=== PATIENT | male | born 1970 | race Caucasian/White ===

== ENCOUNTER 2019-11-27 04:35 | Emergency (ER) | payer OTHER ==
--- NOTE | 2019-11-27 04:50 | PDOC ---
Medical Decision Making - Medical Decision Making 11/27/19 04:50 Patient seen by the advanced practice provider under my supervision. Ancillary testing reviewed as necessary. I agree with plan as outlined by the advanced practice provider. Discharge - Discharge Information Problems reviewed: Yes Clinical Impression/Diagnosis: Urticaria Condition: Fair - Follow up/Referral - Patient Discharge Instructions - Post Discharge Activity
[2019-11-27 05:00] VITALS: BP 130/81; PULSE 89; TEMP 97.9; BMI 28.6
[2019-11-27] MEDS ORDERED: diphenhydrAMINE HCL 25 MG CAPSULE (FP) PO ONE ×2 (05:04→05:14)
[2019-11-27] MEDS ORDERED: predniSONE 20 MG TABLET (UD) PO ONE (05:04)
[2019-11-27] MEDS ORDERED: FAMOTIDINE 20 MG TABLET PO ONE (05:04)
--- NOTE | 2019-11-27 05:11 | PDOC ---
History of Present Illness - General Chief Complaint: Rash Stated Complaint: ALLERGIC REACTION Time Seen by Provider: 11/27/19 04:48 History Source: Patient - History of Present Illness Initial Comments: 11/27/19 05:05 49-year-old male complaining of itchy rash all over body for the last 2 days. Patient reports some slight symptom relief with Benadryl. Patient reports that he took 25 mg of Benadryl at 3:30 AM. Patient reports some itchiness to tongue. No tongue swelling, lip swelling. Uvula midline. Pharynx clear Past medical history of MS Past History - Medical History Allergies/Adverse Reactions: Allergies Allergy/AdvReac Type Severity Reaction Status Date / Time No Known Allergies Allergy Verified 11/27/19 04:56 Home Medications: Ambulatory Orders Diphenhydramine HCl [Benadryl -] 25 mg PO Q8H PRN #21 capsule 11/27/19 Famotidine [Pepcid -] 20 mg PO DAILY #14 tablet 11/27/19 Methylprednisolone [Medrol Dose [place]] 4 mg PO ASDIR #21 tablet 11/27/19 Teriflunomide [Aubagio] 14 mg PO DAILY 11/27/19 Other medical history: multiple sclerosis - Psycho-Social/Smoking History Smoking History: Never smoked Information on smoking cessation initiated: No - Substance Abuse Hx (Audit-C & DAST Scrn) How often the patient has a drink containing alcohol: Never Score: In Men: 4 or > Positive; In Women: 3 or > Positive: 0 Screen Result (Pos requires Nsg. Audit-10AR): Negative In the last yr the pt used illegal drug/Rx for NonMed reason: No Score: Yes response is considered Positive: 0 Screen Result (Positive result requires Nsg. DAST-10): Negative Review of Systems - Review of Systems Able to Perform ROS?: Yes Is the patient limited [place] proficient: No Constitutional: No: Symptoms Reported, See HPI, Chills, Diaphoresis, Fever, Loss of Appetite, Malaise, Night Sweats, Weakness, Weight Stable, Unintentional Wgt. Loss, Unexplained wgt Loss, Other Integumentary: Yes: Pruritus, Rash *Physical Exam - Vital Signs Last Vital Signs Temp Pulse Resp BP Pulse Ox 97.9 F 89 17 130/81 97 11/27/19 04:53 11/27/19 04:53 11/27/19 04:53 11/27/19 04:53 11/27/19 04:53 - Physical Exam General Appearance: Yes: Appropriately Dressed Respiratory/Chest: positive: Lungs Clear, Normal Breath Sounds Integumentary: positive: Hives, Rash, Other (scalp, trunk , groin and hands) Neurologic: positive: Fully Oriented, Alert ED Progress Note - Progress Note Progress Note: allergic reaction P: medrol dose pack benadryl pepcid Discharge - Discharge Information Problems reviewed: Yes Clinical Impression/Diagnosis: Urticaria Acute allergic reaction Qualifiers: Encounter type: initial encounter Qualified Code(s): T78.40XA - Allergy, unspecified, initial encounter Condition: Fair Disposition: HOME - Additional Discharge Information Prescriptions: Diphenhydramine HCl [Benadryl -] 25 mg PO Q8H PRN #21 capsule PRN Reason: Allergies Methylprednisolone [Medrol Dose [place]] 4 mg PO ASDIR #21 tablet Famotidine [Pepcid -] 20 mg PO DAILY #14 tablet - Follow up/Referral - Patient Discharge Instructions Patient Printed Discharge Instructions: DI for General Allergic Reactions Additional Instructions: Take Medrol Dosepak as prescribed. Take Benadryl 25 to 50 mg every 8 hours as needed for itching. Take Pepcid as prescribed. Return to the emergency room for any worsening symp toms - Post Discharge Activity Work/Back to School Note: Back to Work
[2019-11-27] MEDS ORDERED: predniSONE 20 MG TABLET (UD) ONE (05:13)
[2019-11-27] MEDS ORDERED: FAMOTIDINE 20 MG TABLET ONE (05:14)
== END 2019-11-27 05:50 | disposition home or self-care (01) ==
LOC: JER 04:35
DX: L50.9 Urticaria, unspecified (principal); T78.40XA Allergy, unspecified, initial encounter
CPT/HCPCS: 99284-25

== ENCOUNTER 2020-03-27 14:30 | Inpatient (IN) | payer OTHER ==
[2020-03-27] MEDS ORDERED: ACETAMINOPHEN 1000 MG/100 ML BAG IVPB ONE (14:50)
[2020-03-27] MEDS ORDERED: SODIUM CHLORIDE 1,000 ML IV STA (14:50)
[2020-03-27] MEDS ORDERED: ACETAMINOPHEN INJECTION 100 ML IVPB ONE (15:12)
[2020-03-27 15:38] LABS: BASO % 0.9 % (0-2.0); EOS % 1.9 % (0-4.5); HEMATOCRIT 36.5 % (35.4-49); HEMOGLOBIN 12.4 GM/dL (11.7-16.9); LYMPH % 46.5 % (8-40); MCHC 33.9 g/dl (32.0-35.9); MEAN CELL VOLUME 100.2 fl (80-96); MEAN PLT VOLUME 7.5 fl (7.5-11.1); NEUT % 38.7 % (42.8-82.8); PLATELET COUNT 61 K/MM3 (134-434); RBC 3.64 M/mm3 (4.00-5.60); RDW 16.6 % (11.9-15.9); WHITE BLOOD COUNT 3.1 K/mm3 (4.0-10.0)
[2020-03-27 15:48] LABS: INR 1.23 (0.83-1.09)
[2020-03-27 15:51] LABS: ACTIVATED PTT 32.9 SECONDS (25.2-36.5)
[2020-03-27 16:13] LABS: CHLORIDE 106 mmol/L (98-107); SODIUM 138 mmol/L (136-145)
[2020-03-27 16:16] LABS: ALBUMIN 3.9 g/dl (3.4-5.0); ANION GAP 8 MMOL/L (8-16); BLOOD UREA NITROGEN 17.4 mg/dL (7-18); CALCIUM 8.6 mg/dL (8.5-10.1); CO2 24 mmol/L (21-32); GLUCOSE,RANDOM 108 mg/dL (74-106); LIPASE 178 U/L (73-393)
[2020-03-27 16:19] LABS: CREATININE 1.1 mg/dL (0.55-1.3); SGOT/AST 15 U/L (15-37); SGPT/ALT 16 U/L (13-61)
[2020-03-27 16:21] LABS: BILIRUBIN,TOTAL 0.6 mg/dL (0.2-1); TOT PROT 7.9 g/dl (6.4-8.2)
[2020-03-27 16:22] LABS: ALK PHOS 95 U/L (45-117)
[2020-03-27 16:56] LABS: ANISOCYTOSIS 2+; MACROCYTOSIS 0
[2020-03-28 08:47] LABS: BASO % 0.7 % (0-2.0); EOS % 2.6 % (0-4.5); HEMATOCRIT 34.8 % (35.4-49); HEMOGLOBIN 11.6 GM/dL (11.7-16.9); LYMPH % 47.8 % (8-40); MCH 33.1 pg (25.7-33.7); MCHC 33.4 g/dl (32.0-35.9); MEAN CELL VOLUME 99.2 fl (80-96); MEAN PLT VOLUME 7.3 fl (7.5-11.1); MONO % 14.2 % (3.8-10.2); NEUT % 34.7 % (42.8-82.8); PLATELET COUNT 57 K/MM3 (134-434); RDW 16.6 % (11.9-15.9); WHITE BLOOD COUNT 2.4 K/mm3 (4.0-10.0)
[2020-03-28 08:56] LABS: INR 1.2 (0.83-1.09); PROTHROMBIN TIME (PATIENT) 14.5 SEC (9.7-13.0)
[2020-03-28 09:22] LABS: CALCIUM 8.2 mg/dL (8.5-10.1)
[2020-03-28 09:23] LABS: ALBUMIN 3.6 g/dl (3.4-5.0)
[2020-03-28 09:25] LABS: BILIRUBIN,TOTAL 0.4 mg/dL (0.2-1)
[2020-03-28 09:26] LABS: CREATININE 0.9 mg/dL (0.55-1.3); PHOSPHOROUS 2.8 mg/dL (2.5-4.9); TOT PROT 7.2 g/dl (6.4-8.2)
[2020-03-28 10:08] LABS: ANISOCYTOSIS 0; MACROCYTOSIS 0; PLATELET ESTIMATE DECREASED
[2020-03-28 13:34] LABS: URIC ACID 6.3 mg/dL (2.6-7.2)
[2020-03-28] MEDS ORDERED: TAMSULOSIN HCL 0.4 MG CAP ONE (17:20)
[2020-03-28] MEDS: TAMSULOSIN HCL 0.4 MG CAP PO SCH (17:25)
[2020-03-28 18:23] LABS: HIV INTERPRETATION NEGATIVE (NEGATIVE)
[2020-03-29] MEDS ORDERED: ACETAMINOPHEN 325 MG TABLET (FP) PO ONE (03:29)
[2020-03-29 06:09] VITALS: BMI 31.4
[2020-03-29 09:23] LABS: BASO % 0.4 % (0-2.0); EOS % 2.3 % (0-4.5); HEMATOCRIT 36.5 % (35.4-49); HEMOGLOBIN 12.4 GM/dL (11.7-16.9); LYMPH % 48.2 % (8-40); MCHC 33.9 g/dl (32.0-35.9); MEAN CELL VOLUME 100.3 fl (80-96); MEAN PLT VOLUME 7.8 fl (7.5-11.1); MONO % 15.8 % (3.8-10.2); NEUT % 33.3 % (42.8-82.8); PLATELET COUNT 60 K/MM3 (134-434); RBC 3.63 M/mm3 (4.00-5.60); RDW 16.4 % (11.9-15.9); WHITE BLOOD COUNT 2.9 K/mm3 (4.0-10.0)
[2020-03-29 10:13] LABS: CALCIUM 8.5 mg/dL (8.5-10.1)
[2020-03-29 10:14] LABS: ALBUMIN 3.6 g/dl (3.4-5.0); BLOOD UREA NITROGEN 10.2 mg/dL (7-18)
[2020-03-29 10:19] LABS: BILIRUBIN,TOTAL 0.5 mg/dL (0.2-1); TOT PROT 7.2 g/dl (6.4-8.2)
[2020-03-29] MEDS: TAMSULOSIN HCL 0.4 MG CAP PO SCH (10:44)
[2020-03-29 11:12] LABS: ANISOCYTOSIS 1+; MACROCYTOSIS 1+; PLATELET ESTIMATE DECREASED; TARGET CELLS 1+; TEAR DROP CELLS 1+
[2020-03-30 08:58] LABS: BASO % 0.4 % (0-2.0); EOS % 2.2 % (0-4.5); HEMATOCRIT 35.8 % (35.4-49); LYMPH % 51.5 % (8-40); MCHC 33.5 g/dl (32.0-35.9); MEAN CELL VOLUME 98.6 fl (80-96); MEAN PLT VOLUME 7.4 fl (7.5-11.1); MONO % 15.2 % (3.8-10.2); NEUT % 30.7 % (42.8-82.8); PLATELET COUNT 56 K/MM3 (134-434); RBC 3.64 M/mm3 (4.00-5.60); RDW 15.9 % (11.9-15.9); WHITE BLOOD COUNT 2.7 K/mm3 (4.0-10.0)
[2020-03-30] MEDS: TAMSULOSIN HCL 0.4 MG CAP PO SCH (08:59)
[2020-03-30 09:22] LABS: CALCIUM 8.2 mg/dL (8.5-10.1)
[2020-03-30 09:23] LABS: ALBUMIN 3.6 g/dl (3.4-5.0); BLOOD UREA NITROGEN 13.7 mg/dL (7-18)
[2020-03-30 09:27] LABS: BILIRUBIN,TOTAL 0.9 mg/dL (0.2-1)
[2020-03-30 09:28] LABS: TOT PROT 7.4 g/dl (6.4-8.2)
[2020-03-30 11:53] LABS: ANISOCYTOSIS 0; MACROCYTOSIS 0; PLATELET ESTIMATE DECREASED
[2020-03-31] MEDS: TAMSULOSIN HCL 0.4 MG CAP PO SCH (08:51)
[2020-03-31 10:10] LABS: BASO % 0.4 % (0-2.0); EOS % 2.8 % (0-4.5); HEMATOCRIT 37.7 % (35.4-49); HEMOGLOBIN 12.8 GM/dL (11.7-16.9); LYMPH % 44.9 % (8-40); MCH 33.9 pg (25.7-33.7); MCHC 34.1 g/dl (32.0-35.9); MEAN CELL VOLUME 99.7 fl (80-96); MEAN PLT VOLUME 7.4 fl (7.5-11.1); MONO % 14.1 % (3.8-10.2); NEUT % 37.8 % (42.8-82.8); PLATELET COUNT 55 K/MM3 (134-434); RBC 3.78 M/mm3 (4.00-5.60); WHITE BLOOD COUNT 3.3 K/mm3 (4.0-10.0)
[2020-03-31 11:01] LABS: ANISOCYTOSIS 0; MACROCYTOSIS 0; PLATELET ESTIMATE DECREASED
[2020-03-31 11:22] VITALS: TEMP 97.7
[2020-03-31 13:34] VITALS: BP 111/72; PULSE 74
[2020-03-31] MEDS ORDERED: ACETAMINOPHEN 500 MG TABLET (FP) PO ONE (17:37)
== END 2020-03-31 21:07 | disposition home or self-care (01) | DRG 841 ==
LOC: JER 14:30 → JERBED 19:26 → J6S 03-29 01:39
PROVIDERS: ADMIT Internal Medicine
PROC: 07DR3ZX Extraction of Iliac Bone Marrow, Percutaneous Approach, Diagnostic (ICD-10-PCS; principal; 2020-03-31)
DX: C91.40 Hairy cell leukemia not having achieved remission (principal); D61.818 Other pancytopenia; R16.2 Hepatomegaly with splenomegaly, not elsewhere classified; G35 Multiple sclerosis; D69.6 Thrombocytopenia, unspecified; N28.1 Cyst of kidney, acquired; N40.0 Benign prostatic hyperplasia without lower urinary tract symptoms; J34.1 Cyst and mucocele of nose and nasal sinus; R29.6 Repeated falls
CPT/HCPCS: 20225; 36415; 70491-TC; 71260-TC; 74177-TC; 76700-TC; 80053; 80074; 82150; 82550; 82553; 83615; 83690; 83735; 84100; 84439; 84443; 84484; 84550; 85025; 85610; 85730; 86308; 87389; 87899; 88300-TC; 88305-TC; 88311-TC; 88313-TC; 93005; 93010; 97116-GP; 97161-GP; 99285-25; C9803; J0131; Q9967; U0003

== ENCOUNTER 2021-07-05 17:38 | Emergency (ER) | payer OTHER ==
[2021-07-05 17:49] VITALS: BP 162/90; PULSE 95; TEMP 97.6; BMI 29.6
[2021-07-05] MEDS ORDERED: predniSONE 20 MG TABLET (UD) PO ONE (18:15)
[2021-07-05] MEDS ORDERED: predniSONE 20 MG TABLET (UD) ONE (18:17)
== END 2021-07-05 18:19 | disposition home or self-care (01) ==
LOC: JER 17:38 → JERFT 17:38
DX: J45.901 Unspecified asthma with (acute) exacerbation (principal)
CPT/HCPCS: 99283-25

== ENCOUNTER 2021-12-15 08:22 | Emergency (ER) | payer OTHER ==
[2021-12-15 08:29] VITALS: TEMP 99.6; BMI 29.6
[2021-12-15] MEDS ORDERED: SODIUM CHLORIDE 0.9% 500 ML INFUS.BAG IV ONE (09:25)
[2021-12-15] MEDS ORDERED: ACETAMINOPHEN 1000 MG/100 ML BAG IVPB ONE (09:25)
[2021-12-15] MEDS ORDERED: ACETAMINOPHEN INJECTION 100 ML IVPB ONE (09:44)
[2021-12-15 10:52] VITALS: BP 121/76; PULSE 86; RESP 20
[2021-12-15 10:58] LABS: BASO % 0.7 % (0-2.0); EOS % 1.4 % (0-4.5); HEMATOCRIT 45.3 % (35.4-49); HEMOGLOBIN 15.2 GM/dL (11.7-16.9); LYMPH % 6.2 % (8-40); MCH 30.4 pg (25.7-33.7); MCHC 33.5 g/dl (32.0-35.9); MEAN CELL VOLUME 90.8 fl (80-96); MEAN PLT VOLUME 8.2 fl (7.5-11.1); MONO % 9.4 % (3.8-10.2); NEUT % 82.3 % (42.8-82.8); PLATELET COUNT 135 10^3/uL (134-434); RBC 4.99 M/mm3 (4.00-5.60); RDW 14.2 % (11.9-15.9); WHITE BLOOD COUNT 6.5 K/mm3 (4.0-10.0)
[2021-12-15 11:18] LABS: ALBUMIN 3.6 g/dl (3.4-5.0); BLOOD UREA NITROGEN 14.9 mg/dL (7-18); CALCIUM 8.5 mg/dL (8.5-10.1); MAGNESIUM 2.3 mg/dL (1.8-2.4)
[2021-12-15 11:20] LABS: CREATININE 0.9 mg/dL (0.55-1.3)
[2021-12-15 11:22] LABS: BILIRUBIN,TOTAL 0.7 mg/dL (0.2-1); TOT PROT 7.6 g/dl (6.4-8.2)
== END 2021-12-15 13:10 | disposition home or self-care (01) ==
LOC: JER 08:22
PROC: 3E0333Z Introduction of Anti-inflammatory into Peripheral Vein, Percutaneous Approach (ICD-10-PCS; principal; 2021-12-15)
DX: J06.9 Acute upper respiratory infection, unspecified (principal); R19.7 Diarrhea, unspecified
CPT/HCPCS: 0241U-QW; 71045-TC-FY; 74177-TC; 80053; 83735; 85025; 99285-25; Q9967

== ENCOUNTER 2022-01-01 07:01 | Day surgery (SDC) | payer OTHER ==
[2021-12-31 11:42] VITALS: BMI 29.6
[2022-01-01] MEDS ORDERED: ONDANSETRON 4 MG/2 ML VIAL IVPUSH PRN (07:39)
[2022-01-01] MEDS ORDERED: oxyCODONE HCL 5 MG TABLET PO PRN (07:39)
[2022-01-01] MEDS ORDERED: PROMETHAZINE HCL 25 MG/1 ML VIAL IVPUSH PRN (07:39)
[2022-01-01] MEDS ORDERED: LACTATED RINGERS SOLUTION 1,000 ML IV SCH (07:45)
[2022-01-01] MEDS ORDERED: MIDAZOLAM HCL 2 MG/2 ML SINGLE DOSE VIAL ONE (08:39)
[2022-01-01] MEDS ORDERED: PROPOFOL 20 ML ONE (08:39)
[2022-01-01] MEDS ORDERED: LIDOCAINE HCL/PF 2% SDV 5ML VIAL ONE (08:40)
[2022-01-01] MEDS ORDERED: ceFAZolin SODIUM 1 GM VIAL ONE (08:40)
[2022-01-01] MEDS ORDERED: GLYCOPYRROLATE 0.2 MG/1 ML VIAL ONE (08:40)
[2022-01-01] MEDS ORDERED: ONDANSETRON 4 MG/2 ML VIAL ONE (08:40)
[2022-01-01] MEDS ORDERED: SODIUM CHLORIDE 0.9% P/F 10 ML VIAL IJ ONE (08:40)
[2022-01-01] MEDS ORDERED: KETOROLAC TROMETHAMINE 30 MG/1 ML VIAL ONE (08:40)
[2022-01-01] MEDS ORDERED: DEXAMETHASONE SOD PHOSPHATE 4 MG/1 ML VIAL ONE (08:40)
[2022-01-01] MEDS ORDERED: BUPIVACAINE HCL/PF 2.5 MG/ML - 30 ML VIAL IJ ONE (08:53)
[2022-01-01] MEDS ORDERED: EPINEPHrine 1:1,000 1,000 MCG/ML ML ONE (09:00)
[2022-01-01 11:31] VITALS: RESP 18; TEMP 97.8
[2022-01-01 11:55] VITALS: BP 124/78; PULSE 65
[2022-01-01] MEDS ORDERED: ACETAMINOPHEN 1000 MG/100 ML BAG IVPB ONE (13:21)
== END 2022-01-01 12:15 | disposition home or self-care (01) ==
LOC: FASU 07:01
PROVIDERS: ATTEND Orthopaedic Surgery
PROC: 0SBD4ZZ Excision of Left Knee Joint, Percutaneous Endoscopic Approach (ICD-10-PCS; 2022-01-01)
PROC: 0SBD4ZZ Excision of Left Knee Joint, Percutaneous Endoscopic Approach (ICD-10-PCS; principal; 2022-01-01 09:40)
DX: S83.242A Other tear of medial meniscus, current injury, left knee, initial encounter (principal); S83.8X2A Sprain of other specified parts of left knee, initial encounter; M65.862 Other synovitis and tenosynovitis, left lower leg; X58.XXXA Exposure to other specified factors, initial encounter; Y93.9 Activity, unspecified; Y92.9 Unspecified place or not applicable
CPT/HCPCS: 94760

== ENCOUNTER 2022-03-21 00:08 | Emergency (ER) | payer OTHER ==
[2022-03-21] MEDS ORDERED: AZITHROMYCIN IVPB 500 MG in DEXTROSE 5%-WATER - 250 ML IVPB ONE (00:13)
[2022-03-21] MEDS ORDERED: ACETAMINOPHEN 500 MG TABLET (FP) PO ONE (00:13)
[2022-03-21] MEDS ORDERED: DEXAMETHASONE 4 MG TABLET (FP) PO ONE (00:13)
[2022-03-21 00:20] VITALS: BP 143/100; PULSE 109; RESP 18; TEMP 100.4; BMI 28.8
[2022-03-21] MEDS ORDERED: AZITHROMYCIN 500 MG TABLET PO ONE (00:24)
[2022-03-21] MEDS ORDERED: ACETAMINOPHEN 500 MG TABLET (FP) ONE (00:27)
[2022-03-21] MEDS ORDERED: DEXAMETHASONE 4 MG TABLET (FP) ONE (00:27)
[2022-03-21] MEDS ORDERED: AZITHROMYCIN 250 MG TABLET ONE (00:27)
== END 2022-03-21 00:46 | disposition home or self-care (01) ==
LOC: FER 00:08
DX: U07.1 COVID-19 (principal)
CPT/HCPCS: 99283-25

== ENCOUNTER 2022-04-10 22:13 | Emergency (ER) | payer OTHER ==
[2022-04-10] MEDS ORDERED: IBUPROFEN 600 MG TABLET (FP) PO ONE ×2 (22:14→22:21)
[2022-04-10] MEDS ORDERED: DEXAMETHASONE 4 MG TABLET (FP) PO ONE (22:15)
[2022-04-10 22:20] VITALS: BP 167/103; PULSE 105; RESP 18; TEMP 101; BMI 28.8
[2022-04-10] MEDS ORDERED: SODIUM CHLORIDE 0.9% 500 ML INFUS.BAG IV ONE (22:27)
[2022-04-10] MEDS ORDERED: ACETAMINOPHEN 1000 MG/100 ML BAG IVPB ONE (22:27)
[2022-04-10] MEDS ORDERED: ACETAMINOPHEN INJECTION 100 ML IVPB ONE (22:28)
== END 2022-04-11 01:05 | disposition home or self-care (01) ==
LOC: FER 22:13
PROC: 3E033GC Introduction of Other Therapeutic Substance into Peripheral Vein, Percutaneous Approach (ICD-10-PCS; principal; 2022-04-10)
DX: U07.1 COVID-19 (principal); J10.1 Influenza due to other identified influenza virus with other respiratory manifestations
CPT/HCPCS: 0241U-QW; 71046-TC-FY; 99284-25

== ENCOUNTER 2022-08-18 00:05 | Emergency (ER) | payer OTHER ==
[2022-08-18 00:15] VITALS: TEMP 97; BMI 29.5
[2022-08-18 00:26] VITALS: BP 130/82; PULSE 86; RESP 14
[2022-08-18 01:42] LABS: BASO % 0.7 % (0-2.0); HEMATOCRIT 46.6 % (35.4-49); HEMOGLOBIN 16.1 GM/dL (11.7-16.9); MCH 30.4 pg (25.7-33.7); MCHC 34.6 g/dl (32.0-35.9); MEAN CELL VOLUME 87.8 fl (80-96); MEAN PLT VOLUME 8.7 fl (7.5-11.1); MONO % 13.1 % (3.8-10.2); NEUT % 69.2 % (42.8-82.8); PLATELET COUNT 168 10^3/uL (134-434); RBC 5.31 M/mm3 (4.00-5.60); RDW 13.9 % (11.9-15.9); WHITE BLOOD COUNT 6.5 K/mm3 (4.0-10.0)
[2022-08-18 01:58] LABS: INR 1.05 (0.83-1.09); PROTHROMBIN TIME (PATIENT) 12.2 SEC (9.7-13.0)
[2022-08-18 02:02] LABS: CALCIUM 8.7 mg/dL (8.5-10.1)
[2022-08-18 02:03] LABS: ALBUMIN 3.8 g/dl (3.4-5.0); BLOOD UREA NITROGEN 20.9 mg/dL (7-18)
[2022-08-18 02:06] LABS: CREATININE 1.3 mg/dL (0.55-1.3)
[2022-08-18 02:07] LABS: BILIRUBIN,TOTAL 0.4 mg/dL (0.2-1)
[2022-08-18 02:08] LABS: TOT PROT 7.6 g/dl (6.4-8.2)
== END 2022-08-18 04:29 | disposition home or self-care (01) ==
LOC: FER 00:05
DX: R00.2 Palpitations (principal); R03.0 Elevated blood-pressure reading, without diagnosis of hypertension; E78.00 Pure hypercholesterolemia, unspecified; G35 Multiple sclerosis; H54.40 Blindness, one eye, unspecified eye
CPT/HCPCS: 36415; 71046-TC-FY; 80053; 84484; 85025; 85610; 93005; 99285-25

== ENCOUNTER 2022-11-29 15:42 | Emergency (ER) | payer OTHER ==
[2022-11-29] MEDS ORDERED: DEXAMETHASONE SOD PHOSPHATE 10 MG/1 ML VIAL PO ONE (16:05)
[2022-11-29] MEDS ORDERED: IBUPROFEN 600 MG TABLET (FP) PO ONE (16:05)
[2022-11-29 16:37] VITALS: BP 138/98; PULSE 98; RESP 16; TEMP 98; BMI 30.7
[2022-11-29] MEDS ORDERED: IBUPROFEN 400 MG TABLET (FP) PO ONE (16:40)
[2022-11-29] MEDS ORDERED: DEXAMETHASONE SOD PHOSPHATE/PF 10 MG/ML SDV ONE (16:40)
[2022-11-29 19:30] LABS: THROAT:GRP A STREP NOT DETECTED (NOTDETECTED)
== END 2022-11-29 20:05 | disposition home or self-care (01) ==
LOC: FER 15:42
PROC: 3E033GC Introduction of Other Therapeutic Substance into Peripheral Vein, Percutaneous Approach (ICD-10-PCS; principal; 2022-11-29)
DX: R07.0 Pain in throat (principal); U07.1 COVID-19; R09.81 Nasal congestion; R05.9 Cough, unspecified
CPT/HCPCS: 0241U-QW; 71046-TC-FY; 87651; 96372; 99284-25; J1100

== ENCOUNTER 2022-12-22 13:54 | Emergency (ER) | payer OTHER ==
[2022-12-22 14:11] VITALS: BP 128/77; PULSE 78; RESP 20; TEMP 98.3; BMI 30.7
== END 2022-12-22 16:52 | disposition home or self-care (01) ==
LOC: FER 13:54
DX: R05.9 Cough, unspecified (principal); J02.9 Acute pharyngitis, unspecified
CPT/HCPCS: 99282-25

== ENCOUNTER 2023-02-07 14:33 | Emergency (ER) | payer OTHER ==
[2023-02-07 14:46] VITALS: BP 150/96; PULSE 80; RESP 18; TEMP 97.7; BMI 29.9
[2023-02-07] MEDS ORDERED: KETOROLAC TROMETHAMINE 30 MG/1 ML VIAL IM ONE (15:08)
[2023-02-07] MEDS ORDERED: KETOROLAC TROMETHAMINE 30 MG/1 ML VIAL ONE (15:10)
[2023-02-07] MEDS ORDERED: predniSONE 20 MG TABLET (UD) PO ONE (16:04)
[2023-02-07] MEDS ORDERED: predniSONE 20 MG TABLET (UD) ONE (16:13)
== END 2023-02-07 16:20 | disposition home or self-care (01) ==
LOC: FER 14:33
PROC: 3E0233Z Introduction of Anti-inflammatory into Muscle, Percutaneous Approach (ICD-10-PCS; principal; 2023-02-07)
DX: M79.605 Pain in left leg (principal); M54.50 Low back pain, unspecified
CPT/HCPCS: 96372; 99284-25

== ENCOUNTER 2024-02-27 11:29 | Emergency (ER) | payer OTHER ==
[2024-02-27 11:51] VITALS: BP 171/98; PULSE 80; RESP 17; TEMP 97.9; BMI 30.4
[2024-02-27] MEDS ORDERED: ACETAMINOPHEN 500 MG TABLET (FP) ONE (12:34)
[2024-02-27] MEDS: ACETAMINOPHEN 500 MG TABLET (FP) PO ONE (12:43)
== END 2024-02-27 14:09 | disposition home or self-care (01) ==
LOC: JERFT 11:29
DX: S89.91XA Unspecified injury of right lower leg, initial encounter (principal); W01.0XXA Fall on same level from slipping, tripping and stumbling without subsequent striking against object, initial encounter
CPT/HCPCS: 73562-TC-RT-FY; 99283-25